=== PATIENT | female | born 1990 | race Two or more races ===

== ENCOUNTER 2020-10-17 13:00 | Inpatient (IN) | payer OTHER ==
[~2020-10-17] VITALS: Ht 162.6 cm; Wt 67.1 kg
[2020-10-31] MEDS ORDERED: IRON325 MG PO (07:21)
[2020-10-31] MEDS ORDERED: PRENATAL TABLE1 EAC1 PO (07:21)
== END 2020-11-02 12:26 | disposition home or self-care (01) | DRG 807 ==
LOC: LDR 10-31 05:27 → OB/GYN 10-31 19:26
PROVIDERS: ADMIT Obstetrics & Gynecology; ATTEND Obstetrics & Gynecology
PROC: 10E0XZZ Delivery of Products of Conception, External Approach (ICD-10-PCS; principal; 2020-10-31)
PROC: 0W8NXZZ Division of Female Perineum, External Approach (ICD-10-PCS; 2020-10-31)
PROC: 10907ZC Drainage of Amniotic Fluid, Therapeutic from Products of Conception, Via Natural or Artificial Opening (ICD-10-PCS; 2020-10-31)
PROC: 3E033VJ Introduction of Other Hormone into Peripheral Vein, Percutaneous Approach (ICD-10-PCS; 2020-10-31)
PROC: 4A1HXFZ Monitoring of Products of Conception, Cardiac Rhythm, External Approach (ICD-10-PCS; 2020-10-31)
DX: O99.824 Streptococcus B carrier state complicating childbirth (principal); Z37.0 Single live birth; Z3A.39 39 weeks gestation of pregnancy; Z20.822 Contact with and (suspected) exposure to COVID-19